=== PATIENT | female | born 1980 | race Caucasian/White ===

== ENCOUNTER 2017-03-19 14:46 | Emergency (ER) | payer MEDICAID ==
[2017-03-19] MEDS ORDERED: FAMOTIDINE 20 MG TAB PO ONE (15:17)
--- NOTE | 2017-03-19 15:21 | EDPHY ---
H & P Time Seen by Provider: 03/19/17 15:04 HPI/ROS: This patient inadvertently took her dog's Amoxil/clavulanate medication today at 1:15 a.m. and developed urticaria to her torso bilateral arms and very red face. She also developed a feeling of tight scratchy throat. She is accompanied by her common-law who witnessed the event and corroborates the history of the urticaria. She drink a lot of water and rested and these symptoms have spontaneously improved although she has not taken any antihistamines or other treatment. She does have persistent feeling of mild tightness in her throat. She explains that she was distracted, talking while holding 1 of the medications she does normally take and holding the antibiotic for the dog, and she inadvertently took the Augmentin in addition to her clonazepam. ROS: Constitutional: No significant fatigue or fevers. No other complaints HEENT: No facial swelling. No dysphonia. No stridor or drooling per Pulmonary: No wheezing or respiratory distress Cardiovascular: No lightheadedness GI: No nausea vomiting Neuro: No confusion 7 point ROS is otherwise negative. Smoking Status: Former smoker Physical Exam: Vital signs are normal. General Appearance: Alert, no distress. Eyes: Pupils equal and round no pallor or injection. ENT, Mouth: Mucous membranes moist. No angioedema. Oropharynx is clear without stridor drooling. Respiratory: There are no retractions, lungs are clear to auscultation. No wheezing. Cardiovascular: Regular rate and rhythm. Gastrointestinal: Abdomen is soft and nontender, no masses, bowel sounds normal. Neurological: GCS 15 Skin: Warm and dry, no rashes. No urticaria Musculoskeletal: Neck is supple nontender. Extremities are symmetrical, full range of motion. Psychiatric: Mood and affect normal DIFFERENTIAL DIAGNOSIS: After history and physical exam differential diagnosis was considered for antibiotic medication allergic rash, anxiety with flushing Constitutional: Initial Vital Signs Temperature (C) 37.3 C 03/19/17 14:56 Heart Rate 101 H 03/19/17 14:56 Respiratory Rate 18 03/19/17 14:56 Blood Pressure 131/89 H 03/19/17 14:56 O2 Sat (%) 93 03/19/17 14:56 O2 Delivery Mode Room Air Allergies/Adverse Reactions: nitrofurantoin macrocrystalline [From Macrodantin] Allergy (Intermediate, Verified 01/18/16 11:33) Hives hydrocodone bitartrate [From Vicodin] Allergy (Verified 01/18/16 11:33) Home Medications: Medication Instructions Recorded CLONAZEPAM 11/12/15 Cyclobenzaprine 11/12/15 Lidocaine 11/12/15 Naproxen 01/18/16 Metoprolol Tartrate 03/30/16 Famotidine [Pepcid 20 MG (*)] 40 mg PO DAILY #20 tab 03/19/17 MDM/Departure - MDM Medications Given: Discontinued Medications Famotidine (Pepcid) 40 mg PO EDNOW ONE Stop: 03/19/17 15:18 Last Admin: 03/19/17 15:26 Dose: 40 mg ED Course/Re-evaluation: Discussion: Currently, this patient has a normal exam. Since like she had urticaria prior to arrival that resolved. She had a small dose of the Amoxil/ clavulanate-62 mg. Certainly no evidence currently of anaphylaxis, respiratory compromise, airway constriction or other concerning findings. I advised her to the have a simple plan of listing penicillin as an allergy and Augmentin as an allergy, gave her dose of Pepcid here in encouraged her to take nonsedating antihistamines during the day and Benadryl at bedtime for the next 3-5 days. Given the patient's history of bipolar, I think she is well served to avoid steroids orally for her minimal dermatologic symptoms. She understands the need to return should she develop any significant allergic symptoms. - Depart Disposition: Home, Routine, Self-Care Clinical Impression: Antibiotic-induced allergic rash Condition: Good Instructions: Antibiotic Medication Allergy (ED) Additional Instructions: Diagnosis: Antibiotic allergic reaction Plan: Pepcid 40 mg a day for the next 5-7 days Take antihistamine in addition Consider Linda or loratadine nonsedating antihistamines during the day and Benadryl 50 mg at bedtime Return if you develop wheezing or shortness of breath or have a significant recurrence of urticaria despite the treatment plan From now on, list penicillin and Augmentin as allergies. Prescriptions: Famotidine [Pepcid 20 MG (*)] 40 mg PO DAILY #20 tab Referrals: Rock Sheth MD [Primary Care Provider] - As per Instructions
[2017-03-19 15:35] VITALS: BP 121/79; PULSE 86; RESP 16; TEMP 98.2; O2SAT 95
== END 2017-03-19 15:35 | disposition home or self-care (01) ==
LOC: CED 14:46
DX: R21 Rash and other nonspecific skin eruption (principal); T36.1X5A Adverse effect of cephalosporins and other beta-lactam antibiotics, initial encounter; Z87.891 Personal history of nicotine dependence

== ENCOUNTER → 2017-03-28 | Outpatient (CLI) | payer MEDICAID | LOC: CIMAGING 11:21 | PROVIDERS: ATTEND Family Medicine | DX: M40.13 Other secondary kyphosis, cervicothoracic region (principal); M47.892 Other spondylosis, cervical region | CPT/HCPCS: 72040-PO; 72072-PO ==

== ENCOUNTER 2017-08-21 15:46 | Emergency (ER) | payer MEDICAID ==
[2017-08-21 16:10] VITALS: PULSE 81; RESP 18; TEMP 98.2; O2SAT 95
[2017-08-21 16:14] LABS: COLOR YELLOW; LEUKOCYTE ESTERASE,URINE NEGATIVE (NEGATIVE); NITRITE,URINE NEGATIVE (NEGATIVE)
[2017-08-21 16:22] LABS: BACTERIA TRACE /hpf (NONE SEEN); RBC,URINE 50-182 /hpf (0-3); WBC,URINE OCCASIONAL /hpf (0-3)
[2017-08-21] MEDS ORDERED: KETOROLAC 30 MG/1 ML SDV IM ONE (16:31)
--- NOTE | 2017-08-21 16:37 | EDPHY ---
H & P Time Seen by Provider: 08/21/17 16:18 HPI/ROS: HPI Lower abdominal pain. 37-year-old female by private vehicle. She reports that since Saturday she has had lower abdominal pain which she describes as cramping associated with her menstrual period. She got her period yesterday. She reports the cramping has been persistent and is worse than usual. She describes it as slightly greater on the left side than the right side with some radiation to the left side of her back. She has not had a fever. No vomiting. She states she has had some nausea. No diarrhea. Last bowel movement was earlier today and this was normal. No bloody or melenic stool. She denies any unusual heavy bleeding. ROS: Constitutional: No fever, no chills. No weakness. Eyes: No discharge. No changes in vision. ENT: No sore throat. No nasal congestion or rhinorrhea. Respiratory: No cough. No shortness of breath. Cardiac: No chest pain, no palpitations. Gastrointestinal: As above, no vomiting, no diarrhea. Genitourinary: No hematuria. No dysuria or increased frequency with urination. As above. Musculoskeletal: No back pain. No neck pain. No myalgias or arthralgias. Skin: No rashes. Neurological: No headache. No focal weakness or altered sensation. Past medical history: Chlamydia, anxiety disorder, head injury, appendectomy, chronic back pain, elbow dislocation, degenerative lumbar spine disease. Social history: Nonsmoker. Here by herself. Denies alcohol. Physical Exam: General Appearance: Alert, no distress. Obese habitus. This patient is responding to questions appropriately and in full sentences. This patient appears well-hydrated and well-nourished. Eyes: Pupils equal and round no pallor or injection. No lid edema, erythema or injection. Respiratory: There are no retractions, lungs are clear to auscultation with good air movement bilaterally. Cardiovascular: Regular rate and rhythm. No murmur. Gastrointestinal: Abdomen is soft with mild and vague left lower quadrant tenderness on palpation, no masses, bowel sounds normal. No focal tenderness at McBurney's point. No Crespo sign. Neurological: Motor sensory function is grossly intact. Cranial nerves are normal. Gait is normal. Skin: Warm and dry, no rashes. Musculoskeletal: Neck is supple and nontender. Extremities are symmetrical. All joints range without pain or impingement. Psychiatric: No agitation. No depression. Database: EKG: Imaging: Pelvic ultrasound: Significant for a complex 2.5 cm ovarian cyst on the left side. Radiologist recommends follow-up ultrasound in 8-12 weeks. Results were discussed with Dr. Ahmte Maldonado. No other abnormalities. No evidence of torsion or other pathology. Procedures: Emergency department course: Vital signs reviewed. She is moderately hypertensive. Afebrile. Vital signs otherwise normal. She does not have any contraindications to NSAIDs. No renal dysfunction. No history of peptic ulcer disease. She was given intramuscular Toradol for her pain. Pelvic ultrasound will be obtained. Presentation an examination is consistent with menstrual cramping/dysmenorrhea. 6:20 p.m., patient re-evaluated. She is resting comfortably at this time. She denies any significant pain. Repeat abdominal exam she is soft, nontender nondistended. Results of urinalysis and ultrasound discussed with her. I explained she needed to follow up for repeat ultrasound in 8-12 weeks to re- evaluate her complex left ovarian cyst. She is in agreement with this plan. She feels comfortable going home. Repeat abdominal exam she is soft, nontender nondistended. Return to emergency department precautions reviewed with her. All of her questions were answered. She was discharged in good condition. Differential Diagnosis: The differential diagnosis on this patient includes but is not limited to dysmenorrhea. Ectopic , STI, ovarian torsion, appendicitis, diverticulitis unlikely. This represents a partial list of diagnoses considered. These considerations are based on history, physical exam, past history, reassessment and diagnostic testing. Smoking Status: Former smoker Constitutional: Initial Vital Signs Temperature (C) 36.8 C 08/21/17 16:07 Heart Rate 81 08/21/17 16:07 Respiratory Rate 18 08/21/17 16:07 Blood Pressure 151/91 H 08/21/17 16:07 O2 Sat (%) 95 08/21/17 16:07 O2 Delivery Mode Room Air Allergies/Adverse Reactions: nitrofurantoin macrocrystalline [From Macrodantin] Allergy (Intermediate, Verified 01/18/16 11:33) Hives hydrocodone bitartrate [From Vicodin] Allergy (Verified 01/18/16 11:33) Home Medications: Medication Instructions Recorded CLONAZEPAM 11/12/15 Cyclobenzaprine 11/12/15 Lidocaine 11/12/15 Naproxen 01/18/16 Metoprolol Tartrate 03/30/16 Famotidine [Pepcid 20 MG (*)] 40 mg PO DAILY #20 tab 03/19/17 Medical Decision Making - Diagnostics Imaging Results: Imaging Impressions Pelvic/Renal Ultrasound 08/21/17 16:31 Impression: 1. Retroverted uterus. 2. Interim removal of an intrauterine device since previous study of 04/01/2014. 3. There is a mildly complex left ovarian cyst measuring 2.5 cm. There is no evidence of free fluid or torsion. Follow-up sonography in 8-12 weeks at a different point in the future menstrual cycle is recommended. This complex cystic structure was not apparent on the previous sonogram. Findings were discussed with Ester Salas MD at 17:46, on 2016. - Data Points Laboratory Results: 08/21/17 08/21/17 16:10 16:10 Urine Color YELLOW Urine Appearance HAZY Urine pH 7.0 (5.0-7.5) Ur Specific [place] <= 1.005 (1.002-1.030) Urine Protein NEGATIVE (NEGATIVE) Urine Ketones NEGATIVE (NEGATIVE) Urine Blood 3+ H (NEGATIVE) Urine Nitrate NEGATIVE (NEGATIVE) Urine Bilirubin NEGATIVE (NEGATIVE) Urine Urobilinogen 0.2 EU EU (0.2-1.0) Ur Leukocyte Esterase NEGATIVE (NEGATIVE) Urine RBC 50-182 /hpf H /hpf (0-3) Urine WBC OCCASIONAL /hpf /hpf (0-3) Ur Epithelial Cells TRACE /lpf /lpf (NONE-1+) Urine Bacteria TRACE /hpf H /hpf (NONE SEEN) Urine Glucose NEGATIVE (NEGATIVE) Urine Test NEGATIVE Medications Given: Discontinued Medications Ketorolac Tromethamine (Toradol) 60 mg IM EDNOW ONE Stop: 08/21/17 16:32 Last Admin: 08/21/17 17:38 Dose: 60 mg Departure - Departure Disposition: Home, Routine, Self-Care Clinical Impression: Dysmenorrhea, Ovarian cyst, left Condition: Good Instructions: Dysmenorrhea (ED), Ovarian Cyst (ED) Additional Instructions: Read and follow provided instructions. Follow-up with your primary care physician in 1-2 days for re-evaluation. Arrange for a repeat ultrasound in 8-12 weeks to re-evaluate the left ovarian cyst we discussed. Do not take ibuprofen until tomorrow morning at the earliest. Ibuprofen dosing : 600 mg every 6 hours with meals for the next 3 days only. Return to the emergency department for worsening symptoms, worsening pain, fever , vomiting or other serious concerns. Referrals: [facility] [Other] - As per Instructions
[2017-08-21 18:33] VITALS: BP 138/85
== END 2017-08-21 18:32 | disposition home or self-care (01) ==
LOC: CED 15:46
DX: N94.6 Dysmenorrhea, unspecified (principal); N83.202 Unspecified ovarian cyst, left side; Z87.891 Personal history of nicotine dependence; Z90.49 Acquired absence of other specified parts of digestive tract
CPT/HCPCS: 76856-PO; 81003-PO; 81015-PO; 81025-PO; J1885

== ENCOUNTER 2018-12-05 06:27 | Emergency (ER) | payer OTHER, MEDICAID ==
--- NOTE | 2018-12-05 07:02 | EDPHY ---
H & P Stated Complaint: heart palpitations for 3 motnhs, increased last night awoke from sleep Time Seen by Provider: 12/05/18 06:50 HPI/ROS: Chief Complaint: Palpitations HPI: 30-year-old woman with a history of hypothyroidism woke at 4:00 a.m. This morning with palpitations. Patient states that for the last couple months she has been waking up early in the morning with the palpitations and feeling that her heart is racing and some lightheadedness. She has not have any syncope. No chest pain. Does have some mild shortness of breath. She does see her primary care physician yesterday who recheck her thyroid levels, CBC and iron levels. She is waiting for the results. She has not have a family history of coronary artery disease or sudden cardiac . No history of arrhythmia. No recent weight loss or weight gain. She did check her blood sugar this morning and was 90. No recent illness. No fevers or chills. No cough. No nausea or vomiting. Has had some increasing thirst but no increasing urination. ROS: 10 systems were reviewed and were negative except those elements noted in the HPI. PMH: Hypothyroidism, bipolar disorder, anxiety, iron deficiency Social History: No smoking, no alcohol, no recreational drug use Family History: non-contributory Physical Exam: Gen: Awake, Alert, No Distress HEENT: Nose: no rhinorrhea Eyes: PERRLA, EOMI Mouth: Moist mucosa Neck: Supple, no JVD Chest: nontender, lungs clear to auscultation Heart: S1, S2 normal, no murmur Abd: Soft, non-tender, no guarding Back: no CVA tenderness, no midline tenderness Ext: no edema, non-tender Skin: no rash Neuro: CN II-XII intact, Sensation grossly intact, Strength 5/5 in bilateral upper and lower extremities - Personal History LMP (Females 10-55): 22-28 Days Ago - Medical/Surgical History Hx Asthma: No Hx Chronic Respiratory Disease: No Hx Diabetes: No Hx Cardiac Disease: No Hx Renal Disease: No Hx Cirrhosis: No Hx Alcoholism: No Hx HIV/AIDS: No Hx Splenectomy or Spleen Trauma: No Other PMH: med Chlamydia, Anxiety Disorder, head injury. surg appendectomy CHRONIC BACK PAIN elbow dislocation; herniated discs in lumbar; degenerative disc disease - Social History Smoking Status: Former smoker Constitutional: Initial Vital Signs Temperature (C) 36.6 C 12/05/18 06:34 Heart Rate 95 12/05/18 06:34 Respiratory Rate 18 12/05/18 06:34 Blood Pressure 164/88 H 12/05/18 06:34 O2 Sat (%) 95 12/05/18 06:34 O2 Delivery Mode Room Air Allergies/Adverse Reactions: nitrofurantoin macrocrystalline [From Macrodantin] Allergy (Intermediate, Verified 12/05/18 06:32) Hives hydrocodone bitartrate [From Vicodin] Allergy (Verified 12/05/18 06:32) Home Medications: Medication Instructions Recorded Buspar (*) 12/05/18 Levothyroxine 12/05/18 [place] Carbonate 12/05/18 Spironolactone 12/05/18 [id number] 12/05/18 Medical Decision Making - Diagnostics EKG Interpretation: ECG time 6:44 a.m., sinus rhythm with a rate of 88, normal axis, normal intervals, no acute ST or T-wave changes. Impression: Normal ECG. ED Course/Re-evaluation: 30-year-old woman presenting with palpitations that woke this morning. She has been having this occur many mornings for the last couple months. She does have a history of hypothyroidism in her primary changed her Synthroid dosing September. She did have thyroid function studies ordered by her primary care physician yesterday. She has completely normal vital signs and normal exam at this time. She has a normal ECG. No risk factors for PE or arrhythmia. I do not think further blood testing is indicated at this time. She has been reassured. I suspect symptoms could be secondary to hypothyroidism. She did check her blood sugar at home was 90. Plan will be to discharge with follow-up with primary care physician. If she continues to have palpitations and her thyroid and iron studies are normal I have suggested that she discuss a Holter monitor with her primary care physician. Departure - Departure Disposition: Home, Routine, Self-Care Clinical Impression: Palpitations Condition: Good Instructions: Heart Palpitations (ED) Additional Instructions: Follow up with primary care physician on Saturday for laboratory results. If these are normal discussed with your physician wearing a heart monitor her at night. Return to the emergency department for worsening palpitations, chest pain, worsening shortness of breath, fainting, or any other concerns. Referrals: [facility] [Other] - As per Instructions
[2018-12-05 07:12] VITALS: BP 114/74
--- NOTE | 2018-12-06 10:10 | CPEKG ---
Test Reason : OPEN Blood Pressure : / mmHG Vent. Rate : 080 BPM Atrial Rate : 238 BPM P-R Int : 187 ms QRS Dur : 104 ms QT Int : 379 ms P-R-T Axes : 146 124 135 degrees QTc Int : 438 ms Right and left arm electrode reversal, interpretation assumes no reversal Atrial flutter/fibrillation Probable lateral infarct, age indeterminate Confirmed by Mick Esposito ([id number]) on 12/06/2018 10:09:47 AM Referred By: PHYSICIAN ED Confirmed By:Mick Esposito
== END 2018-12-05 07:20 | disposition home or self-care (01) ==
LOC: CED 06:27
DX: R00.2 Palpitations (principal); E03.9 Hypothyroidism, unspecified; Z79.899 Other long term (current) drug therapy
CPT/HCPCS: 99283-ER